=== PATIENT | female | born 1985 ===

== ENCOUNTER 2022-05-07 18:41 | Inpatient (IN) | payer SELFPAY ==
[2022-05-07] MEDS ORDERED: TERBUTALINE 1 MG/1 ML INJ SUB-Q PRN (20:44)
[2022-05-07] MEDS ORDERED: BUTORPHANOL 2 MG/1 ML INJ IV PRN (20:44)
[2022-05-07] MEDS ORDERED: fentaNYL 100 MCG/2 ML INJ IV PRN (20:44)
[2022-05-07] MEDS ORDERED: METHYLERGONOVINE MALEATE 0.2 MG/ML VIAL IM PRN (20:44)
[2022-05-07] MEDS ORDERED: CARBOPROST TROMETHAMINE 250 MCG/1 ML INJ IM PRN (20:44)
[2022-05-07] MEDS ORDERED: ACETAMINOPHEN 325 MG TAB PO PRN (20:44)
--- NOTE | 2022-05-07 20:50 | History and Physical Report ---
History of Present Illness Date of examination: 05/07/22 Date of admission: 05/07/2022 Chief complaint: Contractions History of present illness: 36-year-old at 39-1/7 weeks gestation presents to OB triage reporting regular and painful uterine contractions occurring every 3 to 5 minutes apart. There is no vaginal bleeding. There is no leaking of fluid. There is good movement. In OB triage, cervical exam was noted to be 7 cm dilated. The patient was admitted to labor and delivery for management of active labor. Past History Past Medical History: other (Anxiety) Past Surgical History: no surgical history Family/Genetic History: none Social history: no significant social history - Obstetrical History Expected Date of Delivery: 05/13/22 Actual Gestation: 39 Week(s) 2 Day(s) : 3 Para: 2 Hx # Term Pregnancies: 0 Number of Pregnancies: 0 Spontaneous Abortions: 0 Induced : 0 Number of Living Children: 2 Medications and Allergies Allergies Allergy/AdvReac Type Severity Reaction Status Date / Time No Known Allergies Allergy Unverified 05/07/22 21:31 Active Meds: Active Medications Acetaminophen (Acetaminophen 325 Mg Tab) 650 mg PO Q4H PRN PRN Reason: Pain, Mild (1-3) Butorphanol Tartrate (Butorphanol 2 Mg/1 Ml Inj) 2 mg IV Q2H PRN PRN Reason: Pain, Moderate(4-6) LABOR PAIN Carboprost Tromethamine (Carboprost Tromethamine 250 Mcg/1 Ml Inj) 250 mcg IM ONCE PRN PRN Reason: Uterine Bleeding Fentanyl (Fentanyl 100 Mcg/2 Ml Inj) 100 mcg IV Q2H PRN PRN Reason: Pain,Severe (7-10) LABOR PAIN Lactated Ringer's (Lactated Ringers) 1,000 mls @ 125 mls/hr IV DIRECT DION Oxytocin/Sodium Chloride (Pitocin/Ns 30 Unit/500ml) 30 units in 500 mls @ 40 mls/hr IV TITR DION; Protocol Methylergonovine Maleate (Methylergonovine Maleate 0.2 Mg/Ml Vial) 0.2 mg IM ONCE PRN PRN Reason: Uterine Bleeding Terbutaline Sulfate (Terbutaline 1 Mg/1 Ml Inj) 0.25 mg SUB-Q ONCE PRN PRN Reason: Hyperstimulation/Hypertonicity Review of Systems All systems: negative - Vital Signs Vital signs: Vital Signs Pulse Pulse Ox 81 100 05/07/22 20:30 05/07/22 20:30 Temp Pulse Resp BP Pulse Ox 81 131/79 100 05/07/22 20:40 05/07/22 20:34 05/07/22 20:40 - Physical Exam Breasts: Positive: normal Cardiovascular: Regular rate Lungs: Positive: Normal air movement Abdomen: Positive: normal appearance Genitourinary (Female): Positive: normal external genitalia, normal perenium Vulva: both: normal Vagina: Positive: normal moisture Uterus: Positive: enlarged Adnexa: both: normal Anus/Rectum: Positive: normal perianal skin Extremities: Positive: normal Deep Tendon Reflex Grade: Normal +2 - Obstetrical FHR: category 1 Uterine Contraction Monitor Mode: External Cervical Dilatation: 7 Cervical Effacement Percentage: 80 station: -1 Uterine Contraction Frequency (min): 5 Uterine Contraction Pattern: Regular Results Result Diagrams: 05/07/22 21:47 All other labs normal. Ultrasound: report reviewed, image reviewed (OB Ultrasound Limited= SLIUP. Vertex. Posterio-fundal placenta. EFW= 3740 g (74th %-ile). ANIKA= 9.4 cm.) Assessment and Plan - Patient Problems (1) 38 weeks gestation of Current Visit: Yes Status: Acute Plan to address problem: care is up-to-date at [facility]. The patient is GBS negative. (2) Active labor at term Current Visit: Yes Status: Acute Plan to address problem: The patient had regular and painful uterine contractions occurring every 3 to 5 minutes apart. Cervical exam is 7 cm dilated. Admit to labor and delivery in active labor at term. Expectant management for now. (3) AMA (advanced maternal age) multigravida 35+ Current Visit: Yes Status: Acute Plan to address problem: Quad screen was normal. (4) Anxiety during in third trimester, antepartum Current Visit: Yes Status: Acute Plan to address problem: Currently, the patient is not on any anxiolytic medications. However, she does have a history of depression with her previous gestation. No current suicidal or homicidal ideations.
--- NOTE | 2022-05-07 21:45 | Ultrasound Report ---
ULTRASOUND OBSTETRIC INDICATION / CLINICAL INFORMATION: Pain. Clinical Gestational Age (GA) in weeks, days: 39, 1 TECHNIQUE: Transabdominal. COMPARISON: None available. FINDINGS: Single intrauterine . Biparietal Diameter = 10.2 cm = 42, 0 weeks, days Head Circumference = 35.6 cm = 41, 5 weeks, days Abdominal Circumference = 34.3 cm = 38, 1 weeks, days Femur Length = 7.7 cm = 39, 1 weeks, days Average Ultrasound Age (AUA) = 40, 2 weeks, days Heart Rate: 154 beats per minute. Estimated Weight in grams (if calculated): 3740 Estimated Weight Growth Percentile (if calculated): 74 Position: cephalic. Placenta: posterofundal and free of the os. Amniotic Fluid Volume: normal Amniotic Fluid Index (ANIKA) in cm (if calculated): 9.4. Maternal Adnexa: No significant abnormality. IMPRESSION: 1. Single, living intrauterine with estimated sonographic age of 40, 2 weeks, days. 2. No significant sonographic abnormality. Signer Name: Aris Ma DO Signed: 05/07/2022 9:41 PM Workstation Name: [id number]
[2022-05-07 22:04] LABS: Hematocrit 37.1 % (30.3-42.9); Hemoglobin 12.5 gm/dl (10.1-14.3); Mean Corpuscular HGB Conc 34 % (30-34); Mean Corpuscular Volume 93 fl (79-97); Platelet Count 142 K/mm3 (140-440); Red Blood Count 3.99 M/mm3 (3.65-5.03); Red Cell Distribution Width 14.2 % (13.2-15.2)
[2022-05-07] MEDS ORDERED: ePHEDrine SULFATE 50 MG/1 ML INJ ONE (22:35)
[2022-05-07] MEDS: LACTATED RINGERS 1,000 ML IV SCH ×2 (22:39→22:52)
[2022-05-07] MEDS ORDERED: LACTATED RINGERS 250 ML IV SOLN IV ONE (23:08)
[2022-05-07] MEDS ORDERED: NalbUPHINE 10 MG/1 ML INJ IV PRN (23:08)
[2022-05-07] MEDS ORDERED: ONDANSETRON 4 MG/2 ML INJ IV PRN (23:08)
[2022-05-07] MEDS ORDERED: diphenhydrAMINE 50 MG/ML VIAL IV PRN (23:08)
[2022-05-07] MEDS ORDERED: NALOXONE 0.4 MG/1 ML INJ IV PRN (23:08)
[2022-05-07] MEDS ORDERED: ePHEDrine SULFATE 50 MG/1 ML INJ IV PRN (23:08)
--- NOTE | 2022-05-07 23:10 | Anesthesia Consultation ---
Anesthesia Consult and Med Hx Date of service: 05/07/22 - Airway Anesthetic Teeth Evaluation: Good ROM Head & Neck: Adequate Mental/Hyoid Distance: Adequate Mallampati Class: Class II Intubation Access Assessment: Probably Good - Pulmonary Exam CTA: Yes - Cardiac Exam Cardiac Exam: RRR - Pre-Operative Health Status ASA Pre-Surgery Classification: ASA2 Proposed Anesthetic Plan: Epidural - Pulmonary Hx Smoking: No Hx Asthma: No COPD: No Hx Pneumonia: No Hx Sleep Apnea: No - Cardiovascular System Hx Hypertension: No Hx Angina: No - Central Nervous System Hx Seizures: No - Gastrointestinal Hx Gastroesophageal Reflux Disease: No - Endocrine Hx Renal Disease: No Hx End Stage Renal Disease: No Hx Liver Disease: No Hx Insulin Dependent Diabetes: No Hx Non-Insulin Dependent Diabetes: No Hx Thyroid Disease: No - Hematic Hx Anemia: No - Other Systems Hx Alcohol Use: No
--- NOTE | 2022-05-07 23:11 | Progress Note ---
Labor Epidural - Labor Epidural Start Time: 22:55 Stop Time: 23:01 Performed by:: ELLEN HAHN Procedure: Patient is requesting epidural for labor and pain. H&P, labs were reviewed. Patient IDed, all questions and concerns were answered, and consent was signed. Timeout was performed at bedside. Patient in sitting position. Sterile prep and drape was performed. 3ml of 1% lidocaine skin wheal at L[3]- L [4]. 17- gauge Tuohy epidural needle was advanced to loss of resistance with air technique 5cm. Negative CSF negative blood. Epidural catheter advanced to [11] centimeters. [negative] Aspiration [negative] test dose. Sterile dressing applied. Patient tolerated procedure.
[2022-05-07] MEDS ORDERED: fentaNYL-BUPIV 2 MCG/ML-0.125% 200 MCG/100 ML BAG EPIDURAL SCH (23:45)
[2022-05-08] MEDS: LACTATED RINGERS 1,000 ML IV SCH (04:34)
[2022-05-08] MEDS: OXYTOCIN DRIP 30 UNITS/500 ML BAG IV SCH ×2 (06:17→08:30)
--- NOTE | 2022-05-08 06:40 | Procedure Note ---
OB Delivery Note - Delivery Date of Delivery: 05/08/22 Surgeon: NATALEE SINGER Estimated blood loss: 200cc - Vaginal Delivery presentation: vertex Delivery position: OA Intrapartum events: other(please specify) (AMA) Delivery induction: none Delivery augmentation: rupture of membranes Delivery monitor: external FHT, external uterine Route of delivery: Delivery placenta: spontaneous Delivery cord: 3 umbilical vessels Episiotomy: none Delivery laceration: 1st degree Delivery repair: vicryl Anesthesia: epidural Delivery comments: 36-year-old at 39-1/7 weeks gestation presents to OB triage in active labor with a cervical dilation at 7 cm. The patient was admitted to labor and delivery for management of active labor. The patient received epidural analgesia. Cervix dilated further to 10 cm. Membranes ruptured. The patient pushed and produced the fetus without difficulty. There was a liveborn female infant. Apgars were 9 at 1 minute, and 9 at 5 minutes. The placenta was spontaneously extracted. The was approximately 3600 g. There was a first-degree perineal laceration that was repaired with 3-0 Vicryl that resulted in excellent hemostasis and cosmesis. All instruments were removed from patient's vagina. This was confirmed with a finger sweep. The patient tolerated procedure well. - Infant A at 1 minute: 9 at 5 minutes: 9 Infant Gender: Female
[2022-05-08] MEDS ORDERED: HYDROcodone/ACETAMINOPHEN 5-325 MG TAB PO PRN (07:30)
[2022-05-08] MEDS ORDERED: WITCH HAZEL/ GLYCERIN PAD TP PRN (07:30)
[2022-05-08] MEDS ORDERED: MAGNESIUM HYDROXIDE (MOM) ORAL LIQD UDC PO PRN (07:30)
[2022-05-08] MEDS ORDERED: LANOLIN/ZINC/DIMETHICONE (LANSINOH) 7 GM TP PRN (07:30)
[2022-05-08] MEDS ORDERED: ACETAMINOPHEN 325 MG TAB PO PRN (07:30)
[2022-05-08] MEDS ORDERED: BENZOCAINE/MENTHOL 20/0.5% TOP SPRAY 56 GM TP PRN (07:30)
[2022-05-08] MEDS ORDERED: OXYTOCIN DRIP 30,000 MILLIUNITS/500 ML BAG IV ONE (08:04)
[2022-05-08] MEDS: IBUPROFEN 800 MG TAB PO SCH (09:25)
[2022-05-08] MEDS: DOCUSATE SODIUM 100 MG CAP PO SCH (11:49)
--- NOTE | 2022-05-08 14:48 | Post Anesthesia Evaluation ---
- Post Anesthesia Evaluation Patient Participated: Yes Airway Patent: Yes Stable Respiratory Function: Yes Nausea/Vomiting: No Temp > 96.8F: Yes Pain Manageable: Yes Adequeate Hydration: Yes Anesthesia Complications: No Block Receding Appropriately: Yes Patient on Ventilator: No
[2022-05-09] MEDS: IBUPROFEN 800 MG TAB PO SCH ×2 (00:37→05:56)
[2022-05-09] MEDS: DOCUSATE SODIUM 100 MG CAP PO SCH ×2 (00:37→12:22)
[2022-05-09 08:54] LABS: Hematocrit 31.3 % (30.3-42.9); Hemoglobin 10.4 gm/dl (10.1-14.3); Mean Corpuscular HGB Conc 33 % (30-34); Mean Corpuscular Volume 94 fl (79-97); Platelet Count 133 K/mm3 (140-440); Red Blood Count 3.33 M/mm3 (3.65-5.03); Red Cell Distribution Width 14.7 % (13.2-15.2)
--- NOTE | 2022-05-09 14:40 | Progress Note ---
Assessment and Plan PPD#1 doing fair, asymptomatic thrombocytopenia 1. Routine care 2. Consider discharge home in the am. Subjective Date of service: 05/09/22 Principal diagnosis: PPD#1 Interval history: pt has no complaints. vag bleed like a period. pt is breast feeding. denies headache. pt desires to go home today if baby is discharged Objective - Constitutional Vitals: Vital Signs - 12hr 05/09/22 05/09/22 05/09/22 03:30 05:55 08:09 Temperature 97.9 F Pulse Rate 70 Respiratory 20 Rate Blood Pressure 108/64 [Right] O2 Sat by Pulse 97 Oximetry O2 Sat by Pulse 98 98 Oximetry [ Bilateral] 05/09/22 08:15 Temperature Pulse Rate Respiratory Rate Blood Pressure [Right] O2 Sat by Pulse Oximetry O2 Sat by Pulse 97 Oximetry [ Bilateral] General appearance: Present: no acute distress - Neck Neck: normal ROM - Respiratory Respiratory effort: normal - Breasts Breasts: deferred - Gastrointestinal General gastrointestinal: Present: soft, non-tender - Genitourinary Female genitourinary: other (fundus firm 1cm below umbilicus, non-tender; lochia moderate) - Integumentary Integumentary: warm, dry - Neurologic Neurologic: moves all extremities - Psychiatric Psychiatric: cooperative - Labs CBC & Chem 7: 05/09/22 07:56 Labs: Abnormal lab results 05/09/22 Range/Units 07:56 WBC 11.7 H (4.5-11.0) K/mm3 RBC 3.33 L (3.65-5.03) M/mm3 Plt Count 133 L (140-440) K/mm3 Medications & Allergies - Medications Allergies/Adverse Reactions: Allergies No Known Allergies Allergy (Unverified 05/07/22 21:31) Active Medications: Generic Name Dose Route Start Last Admin Trade Name Freq PRN Reason Stop Dose Admin Acetaminophen 650 mg 05/08/22 07:30 Acetaminophen 325 Mg Tab PO Q4H PRN Pain MILD(1-3)/Fever >100.5/HUNT Hydrocodone Bitart/Acetaminophen 2 each 05/08/22 07:30 Hydrocodone/Acetaminophen 5-325 Mg Tab PO Q6H PRN Pain, Moderate (4-6) Benzocaine/Menthol 1 spray 05/08/22 07:30 Benzocaine/Menthol 20/0.5% [place] 56 Gm TP PRN PRN Episiotomy Pain Docusate Sodium 100 mg 05/08/22 10:00 05/09/22 12:22 Docusate Sodium 100 Mg Cap PO 100 mg BID DION Administration Ibuprofen 800 mg 05/08/22 08:00 05/09/22 05:56 Ibuprofen 800 Mg Tab PO 800 mg Q6H DION Administration Magnesium Hydroxide 30 ml 05/08/22 07:30 Magnesium Hydroxide (Mom) Oral Liqd Udc PO HS PRN Constipation Multi-Ingredient Ointment 1 applic 05/08/22 07:30 Lanolin/Zinc/Dimethicone (Lansinoh) 7 Gm TP PRN PRN Sore Nipples Sodium Chloride 10 ml 05/08/22 08:00 Sodium Chloride 0.9% 10 Ml Flush Syringe IV PRN PRN flush Witch Deanne/Glycerin 1 each 05/08/22 07:30 Witch Deanne/ Glycerin Pad TP PRN PRN Hemorrhoid/cleansing/soothing
[2022-05-09 16:08] VITALS: BP 110/58
--- NOTE | 2022-05-09 16:16 | Discharge Summary ---
Providers - Providers Date of Admission: 05/07/22 20:40 Date of discharge: 05/09/22 Attending physician: AIXA YRAN MD 05/08/22 Consult to Case Management [CONS] Routine Services Needed at Discharge: Other Trains Dispatcher Supervisor Notified:: no Was contact made?: No Comment:: Insurance assitance, H/O depression, Language barrier 05/08/22 06:35 Consult to Tube Cleaner [CONS] Routine Reason For Exam: assistance with , SNS Primary care physician: AIXA RYAN MD Hospitalization Reason for admission: IUP at term Delivery: Episiotomy: none Laceration: 1st degree complications: none Discharge diagnosis: IUP at term delivered baby: female Hospital course: Term preg in labor, uncomplicated and uneventful. pt remained with asymptomatic thrombocytopenia, most likely gestational. Condition at discharge: Good Disposition: 01 HOME / SELF CARE / HOMELESS - Discharge Diagnoses (1) (spontaneous vaginal delivery) Status: Acute (2) Thrombocytopenia Status: Acute Plan - Provider Discharge Summary Additional instructions: [] Smoking cessation referral if applicable(refer to patient education folder for contact #) [] Refer to [facility] Booklet Call your doctor immediately for: * Fever > 100.5 * Heavy vaginal bleeding ( >1 pad per hour) * Severe persistent headache * Shortness of breath * Reddened, hot, painful area to leg or breast * Drainage or odor from incision. * Keep incision clean and dry at all times and follow doctor's instructions regarding bathing/showering - Follow up plan Follow up: AIXA RYAN MD [Primary Care Provider] - 7 Days
== END 2022-05-09 17:14 | disposition home or self-care (01) | DRG 807 ==
LOC: TRG 18:41 → APU 18:42 → TRG 20:40 → LD 20:40 → OB 05-08 08:25
PROVIDERS: ADMIT Obstetrics & Gynecology; ATTEND Obstetrics & Gynecology
PROC: 10E0XZZ Delivery of Products of Conception, External Approach (ICD-10-PCS; principal; 2022-05-08)
PROC: 3E0R3BZ Introduction of Anesthetic Agent into Spinal Canal, Percutaneous Approach (ICD-10-PCS; 2022-05-08)
PROC: 00HU33Z Insertion of Infusion Device into Spinal Canal, Percutaneous Approach (ICD-10-PCS; 2022-05-08)
PROC: 0HQ9XZZ Repair Perineum Skin, External Approach (ICD-10-PCS; 2022-05-08)
DX: O99.12 Other diseases of the blood and blood-forming organs and certain disorders involving the immune mechanism complicating childbirth (principal); Z37.0 Single live birth; O99.344 Other mental disorders complicating childbirth; D69.6 Thrombocytopenia, unspecified; O70.0 First degree perineal laceration during delivery; Z3A.38 38 weeks gestation of pregnancy; Z20.822 Contact with and (suspected) exposure to COVID-19; F41.9 Anxiety disorder, unspecified
CPT/HCPCS: 36415; 76816; 85027; 86850; 86900; 86901; 88307; G0378; J3490; J2590; J7120; U0003